=== PATIENT | female | born 1975 | race Caucasian/White ===

== ENCOUNTER 2017-08-02 15:30 | Emergency (ER) | payer MEDICAID ==
[~2017-08-02] VITALS: Ht 167.6 cm; Wt 70.8 kg
[2017-08-02] MEDS ORDERED: KETOROLAC TROMETH 60MG/2ML VIAL IM ONE (17:15)
[2017-08-02 17:25] VITALS: BP 107/71
== END 2017-08-02 18:09 | disposition home or self-care (01) ==
LOC: ER 15:41
DX: N75.1 Abscess of Bartholin's gland (principal); F17.210 Nicotine dependence, cigarettes, uncomplicated; Z90.49 Acquired absence of other specified parts of digestive tract
CPT/HCPCS: 56420; 96372; 99283; J1885

== ENCOUNTER 2018-01-22 10:29 | Emergency (ER) | payer MEDICAID ==
[~2018-01-22] VITALS: Ht 167.6 cm; Wt 74.8 kg
[2018-01-22 12:16] LABS: Basophils # (auto) 0.1 uL; Eosinophils # (auto) 0.1 uL; Neutrophils # (auto) 5.9 uL; Nucleated Red Blood Cells % 0.1 %; Red Cell Distribution Width 13.8 % (11.8-14.3)
[2018-01-22 12:17] VITALS: BP 100/70
[2018-01-22 12:18] LABS: Basophils % (auto) 1.4 % (0.0-2.0); Hemoglobin 13.5 g/dL (12.2-16.2); Lymphocytes # (auto) 2.3 uL; Lymphocytes % (auto) 25.8 % (10.0-50.0); Mean Corpuscular Hemoglobin 31.4 pg (28.0-32.0); Mean Corpuscular Hgb Conc. 33.7 g/dL (32.0-36.0); Mean Corpuscular Volume 93.1 fL (80.0-100.0); Monocytes # (auto) 0.3 uL; Neutrophils % (auto) 67.8 % (37.0-80.0); Platelet Count (auto) 455 10^3/uL (140-450); White Blood Cell 8.7 10^3/uL (4.4-10.8)
[2018-01-22 12:41] LABS: Albumin 3.9 g/dL (3.4-5.0); BUN/Creatinine Ratio 17.6; Bilirubin, Total 0.3 mg/dL (0.2-1.0); Potassium 4.1 mmol/L (3.5-5.1); Total Protein 7.9 g/dL (6.4-8.2)
[2018-01-22 13:42] LABS: Urine Bacteria NONE SEEN /hpf (None Seen); Urine Blood Negative /uL (Negative); Urine Mucus FEW (None Seen); Urine Specific Gravity 1.029 (1.001-1.035); Urine WBC 4 /hpf (0 - 5)
[2018-01-22 13:46] LABS: Alcohol, Urine < 3.0 mg/dL (0-5); Amphetamine Screen, Urine NEGATIVE (NEGATIVE); Barbiturate Scree,Urine NEGATIVE (NEGATIVE); Benzodiazephine Screen, Urine NEGATIVE (NEGATIVE); Cannabinoid Screen, Urine POSITIVE (NEGATIVE); Cocaine Screen, Urine NEGATIVE (NEGATIVE); Opiate Scree,Urine NEGATIVE (NEGATIVE); Phencyclidine Screen, Urine NEGATIVE (NEGATIVE)
== END 2018-01-22 15:20 | disposition home or self-care (01) ==
LOC: ER 10:29
DX: N39.0 Urinary tract infection, site not specified (principal); F17.210 Nicotine dependence, cigarettes, uncomplicated; Z90.49 Acquired absence of other specified parts of digestive tract
CPT/HCPCS: 36415; 76830; 76856; 80053; 80307; 81001; 84702; 85025